=== PATIENT | female | born 1990 | race Caucasian/White ===

== ENCOUNTER 2019-05-20 16:06 | Emergency (ER) | payer MEDICAID ==
[~2019-05-20] VITALS: Ht 157.5 cm; Wt 54.5 kg
[2019-05-20] MEDS ORDERED: ASCO500C15 PO (16:46)
[2019-05-20] MEDS ORDERED: MEDR10TA11 PO (16:46)
[2019-05-20] MEDS ORDERED: DOCU100T PO (16:46)
[2019-05-20] MEDS ORDERED: FERR325T6 PO (16:46)
[2019-05-20] MEDS ORDERED: MEGE40TA2 PO (16:46)
[2019-05-20 18:10] LABS: BASOPHILS % 0.8 % (0.0-2.0); EOSINOPHILS % 0.5 % (0.0-5.0); HEMATOCRIT. 32.6 % (36.0-48.0); HEMOGLOBIN. 10.3 g/dL (12.0-16.0); LYMPHOCYTES % 12.9 % (20.0-50.0); MEAN CORPUSCULAR HEMOGLOBIN 27.6 pg (28.0-32.0); MEAN CORPUSCULAR VOLUME 87.4 fL (81.0-99.0); MEAN PLATELET VOLUME 9.9 fl (7.4-10.4); MONOCYTES % 5.6 % (2.0-8.0); NEUTROPHILS % 80.2 % (40.0-76.0); PLATELET 208 x1000/uL (130-400); RED BLOOD CELL COUNT 3.73 mill/uL (4.2-5.4); RED CELL DISTRIBUTION WIDTH 16.5 % (11.6-14.6)
[2019-05-20 18:13] LABS: CHLORIDE 112 mEq/L (98-107)
[2019-05-20 18:23] LABS: B-HCG QUANTITATIVE < 1 mIU/mL (<3)
[2019-05-20 19:49] VITALS: BP 110/68
== END 2019-05-20 19:49 | disposition home or self-care (01) ==
LOC: ER 16:06
DX: N93.8 Other specified abnormal uterine and vaginal bleeding (principal); D64.89 Other specified anemias; D25.9 Leiomyoma of uterus, unspecified; R42 Dizziness and giddiness; Z87.440 Personal history of urinary (tract) infections; Z88.1 Allergy status to other antibiotic agents; Z88.6 Allergy status to analgesic agent; Z98.890 Other specified postprocedural states
CPT/HCPCS: 36415; 80048; 84702; 86850; 86900; 99283